=== PATIENT | female | born 1990 | race Caucasian/White ===

== ENCOUNTER 2016-11-26 10:39 | Emergency (ER) | payer OTHER ==
[2016-11-26 10:50] VITALS: BMI 25.0
[2016-11-26] MEDS ORDERED: SODIUM CHLORIDE 0.9% 1000 ML INFUS.BAG IV ONE (11:12)
--- NOTE | 2016-11-26 11:18 | PDOC ---
History of Present Illness - General Chief Complaint: Pain, Acute Stated Complaint: BACK PAIN Time Seen by Provider: 11/26/16 11:08 History Source: Patient - History of Present Illness Initial Comments: 11/26/16 11:17 CC: 2 week h/o of flank + abdominal pain and frothy urine Patient is a 26 y.o. female with no PMH who presents c/o 2 week h/o of intermittent, cramping flank pain as well as frothy urine and dysuria. Patient denies any increased urgency, frequency or hematuria. Patient notes Ibuprofen provides significant pain relief. Patient notes she does not have a PCP and cannot identify any exacerbating/inciting factors that prompted her visit to the Emergency Department today. NKDA Surgical: none Social: denies nicotine, 1-2 alcoholic drinks monthly, denies recreational drugs PMD: none 11/26/16 14:48 Past History - Past Medical History Allergies/Adverse Reactions: Allergies Allergy/AdvReac Type Severity Reaction Status Date / Time No Known Allergies Allergy Verified 11/26/16 10:50 Home Medications: Ambulatory Orders NK [No Known Home Medication] 11/26/16 Asthma: No Cancer: No Cardiac Disorders: No Diabetes: No HTN: No Seizures: No Thyroid Disease: No Other medical history: PATIENT DENIES MEDICAL HX - Reproductive History (#): 2 Para: 0 Therapeutic (s) & number: Yes (1) Spontaneous : 0 - Immunization History Immunization Up to Date: Yes - Suicide/Smoking/Psychosocial Hx Smoking History: Never smoked Hx Alcohol Use: Yes (OCCASIONALLY) Drug/Substance Use Hx: No Substance Use Type: None Hx Substance Use Treatment: No Review of Systems - Review of Systems Constitutional: No: Chills, Fever Respiratory: No: Shortness of Breath Cardiac (ROS): No: Chest Pain ABD/GI: No: Constipated, Diarrhea, Nausea, Vomiting : Yes: Dysuria, Hematuria All Other Systems: Reviewed and Negative *Physical Exam - Vital Signs Last Vital Signs Temp Pulse Resp BP Pulse Ox 98.3 F 69 18 123/75 97 11/26/16 10:48 11/26/16 10:48 11/26/16 10:48 11/26/16 10:48 11/26/16 10:48 - Physical Exam General Appearance: Yes: Nourished, Appropriately Dressed Neck: positive: Trachea midline, Supple Respiratory/Chest: positive: Lungs Clear, Normal Breath Sounds Cardiovascular: positive: Regular Rhythm, Regular Rate Gastrointestinal/Abdominal: positive: Normal Bowel Sounds, Soft Musculoskeletal: positive: CVA Tenderness (R), CVA Tenderness (L). negative: Vertebral Tenderness Integumentary: positive: Normal Color, Dry, Warm Neurologic: positive: heel varnisher II-XII NML intact, Fully Oriented, Alert ED Treatment Course - LABORATORY CBC & Chemistry Diagram: 11/26/16 11:30 11/26/16 11:30 Medical Decision Making - Medical Decision Making 11/26/16 14:50 Patient is a 26 y.o. female who presents with flank pain and frothy urine. Initial DDx is nephrolithiasis vs. UTI vs. glucosuria 2/2 to DM PLAN: 1. UA 2. CBC, CMP 3. PCP referral to establish primary care Patient's UA 2+ positive for blood, however patient endorses current menstrual cycle. Renal U/S shows no hydronephrosis, equivocal renal stone. As patient pain persists leukocyte esterase is pending, patient sent for spiral CT. 11/26/16 20:12 CT negative for nephrolithiasis. Leukocyte esterase negative Patient symptomatically improved. Patient given referral to PCP and counseled to return to ED should her symptoms worsen. *DC/Admit/Observation/Transfer Diagnosis at time of Disposition: Flank pain - Discharge Dispostion Disposition: HOME Condition at time of disposition: Good Admit: No - Referrals Referrals: Sandoval Mcguire MD [Staff Physician] - - Patient Instructions Additional Instructions: Please call [phone] to establish primary care. Please take a copy of your CT scan and Ultrasound reports to your appointment. Please return to the ED for any worsening or concerning symptoms.
[2016-11-26 11:40] LABS: BASOPHIL 0.5 % (0-2.0); EOSINOPHIL 0.5 % (0-4.5); MCH 22.7 pg (25.7-33.7); MCHC 31.8 g/dl (32.0-36.0); MEAN CELL VOLUME 71.3 fl (80-96); MEAN PLT VOLUME 9.6 fl (7.5-11.1); NEUTROPHILS 62.5 % (42.8-82.8); PLATELET COUNT 254 K/MM3 (134-434); RDW 14.5 % (11.6-15.6); WHITE BLOOD COUNT 7.3 K/mm3 (4.0-10.0)
[2016-11-26 11:41] LABS: URINE APPEARANCE CLEAR; URINE BILIRUBIN NEGATIVE (NEGATIVE); URINE BLOOD 2+ (NEGATIVE); URINE COLOR LTYELLOW; URINE GLUCOSE (UA) NEGATIVE (NEGATIVE); URINE KETONE NEGATIVE (NEGATIVE); URINE NITRITE NEGATIVE (NEGATIVE); URINE PROTEIN NEGATIVE (NEGATIVE); URINE UROBILINOGEN NEGATIVE mg/dL (0.2-1.0)
--- NOTE | 2016-11-26 11:55 | PDOC ---
Attending Attestation - Resident Resident Name: Wendy Hudson - ED Attending Attestation I have performed the following: I have examined & evaluated the patient, The case was reviewed & discussed with the resident, I agree w/resident's findings & plan, Exceptions are as noted - HPI HPI: 11/26/16 11:53 Two weeks of flank pain radiating to lower abdomen (mostly on right) - Physicial Exam PE: 11/26/16 11:54 VSS, NAD, Abdomen Flat and Soft - Medical Decision Making 11/26/16 11:[address] Hudson's Assessment and Plan
[2016-11-26 12:18] LABS: ALK PHOS 59 U/L (45-117); ANION GAP 7 (8-16); BILIRUBIN,TOTAL 0.6 mg/dL (0.2-1.0); CALCIUM 9.4 mg/dL (8.5-10.1); CO2 27 mmol/L (21-32); CREATININE 0.8 mg/dL (0.55-1.02); GLUCOSE,RANDOM 83 mg/dL (74-106); SGOT/AST 18 U/L (15-37); SGPT/ALT 21 U/L (12-78); TOT PROT 7.6 g/dl (6.4-8.2)
[2016-11-26 12:50] LABS: URINE BACTERIA RARE /hpf (NONE SEEN); URINE MUCUS RARE; URINE RBC 54 /hpf (0-3); URINE WBC 4 /hpf (3-5)
[2016-11-26 15:14] LABS: URINE LEUK ESTERASE Negative (NEGATIVE)
[2016-11-26 16:52] VITALS: BP 126/74; PULSE 74; TEMP 98.7
== END 2016-11-26 16:51 | disposition home or self-care (01) ==
LOC: JER 10:39
PROC: 3E0337Z Introduction of Electrolytic and Water Balance Substance into Peripheral Vein, Percutaneous Approach (ICD-10-PCS; principal; 2016-11-26)
DX: R10.9 Unspecified abdominal pain (principal)
CPT/HCPCS: 36415; 74176; 76775-TC; 80053; 81003; 81015; 84703; 85025; 99282-25

== ENCOUNTER 2019-10-06 20:18 | Emergency (ER) | payer SELFPAY ==
[2019-10-06 20:26] VITALS: BP 117/70; PULSE 75; TEMP 97.5; BMI 26.6
[2019-10-06] MEDS ORDERED: AZITHROMYCIN 250 MG TABLET PO ONE (20:46)
[2019-10-06] MEDS ORDERED: AZITHROMYCIN 500 MG TABLET ONE (21:06)
--- NOTE | 2019-10-06 21:32 | PDOC ---
History of Present Illness - General Chief Complaint: Vaginal Sxs Stated Complaint: ABD PAIN Time Seen by Provider: 10/06/19 20:19 - History of Present Illness Initial Comments: 10/06/19 21:27 28-year-old female presents for vaginal symptoms was treated for yeast infection then had unprotected sex now reports vaginal discharge x5 days she has concerns for STD's as well Past History - Medical History Allergies/Adverse Reactions: Allergies Allergy/AdvReac Type Severity Reaction Status Date / Time No Known Allergies Allergy Verified 10/06/19 20:24 Home Medications: Ambulatory Orders Clotrimazole [Clotrimazole-7] 45 gm VG DAILY #7 cream.appl 10/06/19 metroNIDAZOLE [Flagyl -] 500 mg PO BID #14 tablet 10/06/19 Asthma: No Cancer: No Cardiac Disorders: No CVA: No COPD: No CHF: No Diabetes: No HTN: No Seizures: No Thyroid Disease: No - Reproductive History Is Patient Now?: No (#): 2 Para: 0 Therapeutic (s) & number: Yes (1) Spontaneous : 0 - Immunization History Immunization Up to Date: Yes - Psycho-Social/Smoking History Smoking History: Never smoked - Substance Abuse Hx (Audit-C & DAST Scrn) How often the patient has a drink containing alcohol: Never Score: In Men: 4 or > Positive; In Women: 3 or > Positive: 0 Screen Result (Pos requires Nsg. Audit-10AR): Negative Review of Systems - Review of Systems : Yes: Discharge *Physical Exam - Vital Signs Last Vital Signs Temp Pulse Resp BP Pulse Ox 97.5 F L 75 18 117/70 99 10/06/19 20:24 10/06/19 20:24 10/06/19 20:24 10/06/19 20:24 10/06/19 20:24 - Physical Exam General Appearance: Yes: Nourished, Appropriately Dressed. No: Apparent Distress HEENT: positive: Symmetrical Neck: positive: Supple Respiratory/Chest: negative: Respiratory Distress Female Pelvic Exam: positive: other (Pelvic exam done by female provider Jennifer Granados. No cervical motion tenderness cottage cheeselike vaginal discharge along with malodorous vaginal discharge with impression of yeast infection and bacterial vaginosis) ED Treatment Course - ADDITIONAL ORDERS Additional order review: Laboratory Results 10/06/19 21:10 Urine HCG, Qual Negative - Medications Given in the ED: ED Medications Discontinued Medications Generic Name Dose Route Start Last Admin Trade Name Neftali PRN Reason Stop Dose Admin Azithromycin 1,000 mg 10/06/19 20:46 10/06/19 21:11 Zithromax - PO 10/06/19 20:47 1,000 mg ONCE ONE Administration Ceftriaxone Sodium 250 mg 10/06/19 20:46 10/06/19 21:10 Rocephin - IM 10/06/19 20:47 250 mg ONCE ONE Administration Medical Decision Making - Medical Decision Making 10/06/19 21:42 I have reviewed the pathophysiology with the patient. They are in agreement with the treatment plan all questions were answered to their satisfaction. Understanding for follow-up without fail was also conveyed to the patient. Again they are in agreement. Discharge - Discharge Information Problems reviewed: Yes Clinical Impression/Diagnosis: Yeast infection, Bacterial vaginitis Condition: Stable Disposition: HOME - Admission No - Additional Discharge Information Prescriptions: Clotrimazole [Clotrimazole-7] 45 gm VG DAILY #7 cream.appl metroNIDAZOLE [Flagyl -] 500 mg PO BID #14 tablet - Follow up/Referral Referrals: Betzy Scott MD [Staff Physician] - - Patient Discharge Instructions Additional Instructions: Return to the emergency room for further issues and without fail follow-up with DIRECTOR OF RECRUITMENT AND ADMISSIONS in 1 to 2 days for further evaluation and treatment options. Please take the antibiotics as well as the suppositories as directed and finish the entire course. You may call in 2 to 3 days for results of the remainder of your blood work. - Post Discharge Activity
[2019-10-06 21:41] LABS: URINE APPEARANCE Clear; URINE BILIRUBIN Negative (NEGATIVE); URINE COLOR Yellow; URINE GLUCOSE (UA) Negative (NEGATIVE); URINE KETONE Negative (NEGATIVE); URINE LEUK ESTERASE Negative (NEGATIVE); URINE NITRITE Negative (NEGATIVE); URINE PROTEIN Negative (NEGATIVE); URINE UROBILINOGEN 0.2 mg/dL (0.2-1.0)
== END 2019-10-06 21:49 | disposition home or self-care (01) ==
LOC: JERFT 20:18
DX: B37.3 Candidiasis of vulva and vagina (principal); N76.0 Acute vaginitis
CPT/HCPCS: 36415; 81003; 84703; 86780; 87086; 87186; 87389; 87491; 87591; 99284-25

== ENCOUNTER 2021-02-12 13:32 | Emergency (ER) | payer OTHER ==
[2021-02-12 13:54] VITALS: BP 100/65; PULSE 72; TEMP 98.2; BMI 24.2
[2021-02-12] MEDS ORDERED: FLUCONAZOLE 150 MG TABLET PO ONE ×2 (14:47→14:53)
[2021-02-12] MEDS ORDERED: cefTRIAXone SODIUM 1 GM VIAL ONE (14:54)
[2021-02-12 15:20] LABS: URINE APPEARANCE CLEAR; URINE BILIRUBIN NEGATIVE (NEGATIVE); URINE COLOR YELLOW; URINE GLUCOSE (UA) NEGATIVE (NEGATIVE); URINE KETONE NEGATIVE (NEGATIVE); URINE LEUK ESTERASE NEGATIVE (NEGATIVE); URINE NITRITE NEGATIVE (NEGATIVE); URINE PROTEIN NEGATIVE (NEGATIVE); URINE UROBILINOGEN 0.2 mg/dL (0.2-1.0)
[2021-02-12 15:23] LABS: HCG,QUALITATIVE URINE Negative
[2021-02-12 16:07] LABS: SYPHILIS W/ RPR CONF NON-REACTIVE (NONREACTIVE)
[2021-02-12 16:35] LABS: HIV INTERPRETATION NEGATIVE (NEGATIVE)
== END 2021-02-12 15:41 | disposition home or self-care (01) ==
LOC: JERFT 13:32
DX: L29.2 Pruritus vulvae (principal)
CPT/HCPCS: 36415; 81003; 84703; 86780; 87086; 87389; 87491; 87591; 99283-25

== ENCOUNTER 2021-02-25 18:58 | Emergency (ER) | payer OTHER ==
[2021-02-25 19:16] VITALS: BP 119/76; TEMP 97; BMI 24.2
[2021-02-25 19:54] VITALS: PULSE 73
== END 2021-02-25 19:58 | disposition home or self-care (01) ==
LOC: JERFT 18:58 → JER 18:58 → JERFT 19:58
DX: S00.531A Contusion of lip, initial encounter (principal)
CPT/HCPCS: 99283-25